=== PATIENT | female | born 1965 | race African-American/Black ===

== ENCOUNTER 2020-11-14 12:30 | Outpatient (CLI) | payer BC | END 2020-11-14 12:31 | disposition home or self-care (01) | LOC: CSHULT 12:30 | PROVIDERS: ATTEND Nurse Practitioner Family | DX: R19.01 Right upper quadrant abdominal swelling, mass and lump (principal) | CPT/HCPCS: 93975 ==

== ENCOUNTER 2021-02-18 07:23 | Outpatient (CLI) | payer BC ==
[2021-02-18 09:00] LABS: Hemoglobin 13.8 g/dL (12.0-15.5); Mean Corpuscular HGB CONC 32.9 g/dL (32.0-36.0); Mean Corpuscular Hemoglobin 29.6 pg (27.0-33.0); Mean Corpuscular Volume 89.9 fl (81.6-98.3); Mean Platelet Volume 10.5 fl (7.4-10.4); Platelet Count 364 10x3/uL (150-450); RBC Distribution Width 13.2 % (11.5-14.5); Red Blood Cell (RBC) Count 4.67 10x6/uL (3.90-5.03); White Blood Cell (WBC) Count 5.4 10x3/uL (3.5-10.5)
[2021-02-18 21:45] LABS: SARS-CoV-2 PCR by NAA Not Detected (NotDetected)
== END 2021-02-18 07:24 | disposition home or self-care (01) ==
LOC: CSHLAB 07:23
PROVIDERS: ATTEND Student in an Organized Health Care Education/Training Program
DX: Z01.818 Encounter for other preprocedural examination (principal); Z20.822 Contact with and (suspected) exposure to COVID-19
CPT/HCPCS: 85027; 93005; 93010; U0003; U0005

== ENCOUNTER 2021-02-21 09:58 | Day surgery (SDC) | payer BC ==
[2021-02-19 15:09] VITALS: BMI 31.0
[2021-02-21] MEDS ORDERED: Gabapentin 300 MG CAP ONE (10:02)
[2021-02-21] MEDS ORDERED: Famotidine/PF 20 mg/2ml Vial ONE (10:03)
[2021-02-21] MEDS ORDERED: Lidocaine 1% MPF 2 ML VIAL ONE (10:03)
[2021-02-21] MEDS ORDERED: CeleCOXIB 100 MG CAP ONE (10:03)
[2021-02-21 10:57] LABS: BHCG - Serum Negative (NEGATIVE); Pregs Control Background? CLEAR/WHITE (CLR/WHITE); Pregs Control Bar Appear? YES (CONTROL BAR)
[2021-02-21 11:01] LABS: Anion Gap 16 mmol/L (10-20); BUN (Urea Nitrogen) 19 mg/dL (9.8-20.1); Calc. Creatinine Clearance 110 mL/min (70-130); Calcium 10.4 mg/dL (7.8-10.44); Carbon Dioxide 26 mmol/L (22-29); Chloride 102 mmol/L (98-107); Glucose 114 mg/dL (70-105); Potassium 3.7 mmol/L (3.5-5.1); Sodium 140 mmol/L (136-145)
[2021-02-21] MEDS ORDERED: EPINEPHrine 1 MG/ML AMP ONE (11:20)
[2021-02-21] MEDS ORDERED: Bupivacaine PF 0.5% 30 ML VIAL ONE (11:20)
[2021-02-21] MEDS ORDERED: Fentanyl 100 MCG/2 ML VIAL ONE (11:44)
[2021-02-21] MEDS ORDERED: PROPOFOL 20 ML ONE (11:44)
[2021-02-21] MEDS ORDERED: Lidocaine 1% PF 5 ML VIAL ONE (11:45)
[2021-02-21] MEDS ORDERED: Rocuronium Bromide 10 MG/ML (10ML VIAL) ONE (11:45)
[2021-02-21] MEDS ORDERED: Dexamethasone 4 mg/ml Vial ONE (13:08)
[2021-02-21] MEDS ORDERED: Ketorolac Tromethamine 30 MG/ML VIAL ONE (13:08)
[2021-02-21] MEDS ORDERED: Ondansetron PF 4 MG/2 ML Vial ONE (13:08)
[2021-02-21] MEDS ORDERED: Glycopyrrolate 0.2 MG/ML 5 ML SYRINGE ONE (13:17)
== END 2021-02-21 14:37 | disposition home or self-care (01) ==
LOC: CSHSDC 09:58
PROVIDERS: ATTEND Student in an Organized Health Care Education/Training Program
PROC: 0UT54ZZ Resection of Right Fallopian Tube, Percutaneous Endoscopic Approach (ICD-10-PCS; principal; 2021-02-21)
PROC: 0UT04ZZ Resection of Right Ovary, Percutaneous Endoscopic Approach (ICD-10-PCS; principal; 2021-02-21)
PROC: 0UB94ZZ Excision of Uterus, Percutaneous Endoscopic Approach (ICD-10-PCS; principal; 2021-02-21)
DX: D27.0 Benign neoplasm of right ovary (principal); D25.1 Intramural leiomyoma of uterus; N80.3 Endometriosis of pelvic peritoneum; N80.8 Other endometriosis; I10 Essential (primary) hypertension; K76.0 Fatty (change of) liver, not elsewhere classified; M19.90 Unspecified osteoarthritis, unspecified site; K21.9 Gastro-esophageal reflux disease without esophagitis; Z87.891 Personal history of nicotine dependence; Z79.899 Other long term (current) drug therapy
CPT/HCPCS: 36415; 80048; 84703; 86850; 86900; 86901; 88305; 88307; J0171; J0690; J1100; J1885; J2405; J2704; J3010; S0020; S0028

== ENCOUNTER 2021-05-06 02:01 | Observation (INO) | payer BC ==
[2021-05-06] MEDS ORDERED: Ondansetron PF 4 MG/2 ML Vial ONE (02:42)
[2021-05-06 03:17] LABS: #Monocytes 0.5 10x3/uL (0.0-1.1); #Neutrophils 7.3 10x3/uL (1.5-8.4); %Basophils 0.3 % (0.0-2.0); %Eosinophils 0.4 % (0.0-6.0); %Lymphocytes 18.5 % (18.0-47.0); %Monocytes 5.3 % (0.0-10.0); %Neutrophils 75.1 % (40.0-75.0); Hemoglobin 14.5 g/dL (12.0-15.5); Mean Corpuscular HGB CONC 35.1 g/dL (32.0-36.0); Mean Corpuscular Hemoglobin 30.1 pg (27.0-33.0); Mean Corpuscular Volume 85.9 fl (81.6-98.3); Mean Platelet Volume 10.8 fl (7.4-10.4); Platelet Count 305 10x3/uL (150-450); RBC Distribution Width 13.2 % (11.5-14.5); Red Blood Cell (RBC) Count 4.81 10x6/uL (3.90-5.03); White Blood Cell (WBC) Count 9.7 10x3/uL (3.5-10.5)
[2021-05-06 03:21] LABS: ALT (SGPT) 26 U/L (8-55); AST (SGOT) 27 U/L (5-34); Albumin 4.7 g/dL (3.5-5.0); Alkaline Phosphatase 80 U/L (40-110); Anion Gap 21 mmol/L (10-20); BUN (Urea Nitrogen) 19 mg/dL (9.8-20.1); Bilirubin, Total 0.6 mg/dL (0.2-1.2); Calc. Creatinine Clearance 0 mL/min (70-130); Calcium 9.9 mg/dL (7.8-10.44); Carbon Dioxide 21 mmol/L (22-29); Chloride 101 mmol/L (98-107); Glucose 118 mg/dL (70-105); Lipase 40 U/L (8-78); Potassium 3.3 mmol/L (3.5-5.1); Protein, Total 7.7 g/dL (6.0-8.3); Sodium 140 mmol/L (136-145)
[2021-05-06] MEDS ORDERED: Morphine 4 MG/ML VIAL ONE (03:38)
[2021-05-06 04:20] LABS: SARS-CoV-2 NAA Rapid Test Not Detected (NotDetected)
[2021-05-06] MEDS ORDERED: Ondansetron ODT 4 MG TAB ONE (05:11)
[2021-05-06] MEDS ORDERED: Acetaminophen 650 MG Suppository PR PRN (08:54)
[2021-05-06] MEDS ORDERED: Ondansetron PF 4 MG/2 ML Vial IVP PRN (08:54)
[2021-05-06] MEDS ORDERED: Potassium Chloride 40 MEQ in Premix Bag 1 BAG IVPB SCH (09:15)
[2021-05-06] MEDS ORDERED: Pantoprazole 40 MG VIAL IVP SCH (09:15)
[2021-05-06 09:16] LABS: Lactic Acid 1.4 mmol/L (0.5-2.2)
[2021-05-06 09:57] VITALS: BMI 32.5
[2021-05-06] MEDS ORDERED: FLU VACC QS2021-22(6MOS UP)/PF 60 MCG/0.5 ML SYRINGE IM ONE (10:15)
[2021-05-06] MEDS: Lactated Ringer's 1,000 ML IV SCH ×3 (10:35→22:03)
[2021-05-06] MEDS ORDERED: Pantoprazole 40 MG VIAL ONE (10:35)
[2021-05-06 13:28] LABS: Bilirubin Neg (Negative); Blood, Urine 10 (Negative); Clarity Clear (Clear); Glucose, Urine (Dipstick) Normal (Negative); Ketone, Urine 15 mg/dL (Negative); Leukocyte Negative (Negative); Nitrite Negative (Negative); Protein, Urine (Dipstick) 15 mg/dl (Neg-Trace); Specific Gravity, Urine 1.015 (1.002-1.036); Urobilinogen Normal mg/dL (Less than 2)
[2021-05-06 13:47] LABS: Bacteria/HPF 2+ HPF (None Seen); Mucous/LPF 2+ LPF (<2+); RBC/HPF 0-3 HPF (0-3); Squamous Epithelial 0-3 HPF (0-3); WBC/HPF 0-3 HPF (0-3)
[2021-05-07] MEDS: Lactated Ringer's 1,000 ML IV SCH (05:52)
[2021-05-07 05:57] LABS: #Eosinphils 0.1 10x3/uL (0.0-0.5); #Monocytes 0.4 10x3/uL (0.0-1.1); #Neutrophils 2.5 10x3/uL (1.5-8.4); %Basophils 0.2 % (0.0-2.0); %Eosinophils 1.9 % (0.0-6.0); %Lymphocytes 35.7 % (18.0-47.0); %Monocytes 9.1 % (0.0-10.0); %Neutrophils 52.7 % (40.0-75.0); Hemoglobin 11.4 g/dL (12.0-15.5); Mean Corpuscular HGB CONC 33.6 g/dL (32.0-36.0); Mean Corpuscular Hemoglobin 30.1 pg (27.0-33.0); Mean Corpuscular Volume 89.4 fl (81.6-98.3); Mean Platelet Volume 11.1 fl (7.4-10.4); Platelet Count 247 10x3/uL (150-450); RBC Distribution Width 13.5 % (11.5-14.5); Red Blood Cell (RBC) Count 3.79 10x6/uL (3.90-5.03); White Blood Cell (WBC) Count 4.7 10x3/uL (3.5-10.5)
[2021-05-07 06:30] LABS: ALT (SGPT) 18 U/L (8-55); AST (SGOT) 15 U/L (5-34); Albumin 3.5 g/dL (3.5-5.0); Alkaline Phosphatase 58 U/L (40-110); Anion Gap 12 mmol/L (10-20); BUN (Urea Nitrogen) 9 mg/dL (9.8-20.1); Bilirubin, Total 0.5 mg/dL (0.2-1.2); Calc. Creatinine Clearance 125 mL/min (70-130); Calcium 8.3 mg/dL (7.8-10.44); Carbon Dioxide 27 mmol/L (22-29); Chloride 106 mmol/L (98-107); Globulin 1.9 g/dL (2.4-3.5); Glucose 105 mg/dL (70-105); Potassium 2.9 mmol/L (3.5-5.1); Protein, Total 5.4 g/dL (6.0-8.3); Sodium 142 mmol/L (136-145)
[2021-05-07] MEDS ORDERED: Lactated Ringer's 1,000 ML IV SCH (07:42)
[2021-05-07] MEDS ORDERED: Potassium Chloride 40 MEQ in Premix Bag 1 BAG IVPB SCH (08:00)
[2021-05-07] MEDS ORDERED: PARoxetine 20 MG TAB PO SCH (09:00)
[2021-05-07] MEDS ORDERED: Chlorthalidone 25 MG TAB PO SCH (09:00)
[2021-05-07] MEDS ORDERED: PARoxetine 10 MG TAB PO SCH (09:00)
[2021-05-07] MEDS ORDERED: Atenolol 50 MG TAB PO SCH (09:00)
[2021-05-07] MEDS ORDERED: Pantoprazole 40 MG VIAL IVP SCH (09:00)
[2021-05-07 18:37] LABS: Anion Gap 13 mmol/L (10-20); BUN (Urea Nitrogen) 10 mg/dL (9.8-20.1); Calc. Creatinine Clearance 118 mL/min (70-130); Calcium 8.9 mg/dL (7.8-10.44); Carbon Dioxide 26 mmol/L (22-29); Chloride 105 mmol/L (98-107); Glucose 128 mg/dL (70-105); Potassium 3.2 mmol/L (3.5-5.1); Sodium 141 mmol/L (136-145)
[2021-05-07 19:43] VITALS: BP 113/68; TEMP 97
[2021-05-07] MEDS ORDERED: Potassium Chloride 20 MEQ TAB PO SCH (20:15)
== END 2021-05-07 21:16 | disposition home or self-care (01) ==
LOC: CSHERS 02:01 → CSHTELE 08:21 → INTOOBSV 08:21
PROVIDERS: ADMIT Internal Medicine; ATTEND Internal Medicine
DX: K52.9 Noninfective gastroenteritis and colitis, unspecified (principal); E86.0 Dehydration; E87.6 Hypokalemia; E87.2 Acidosis; I10 Essential (primary) hypertension; Z79.899 Other long term (current) drug therapy; K21.9 Gastro-esophageal reflux disease without esophagitis; Z20.822 Contact with and (suspected) exposure to COVID-19
CPT/HCPCS: 36556; 74176; 78227; 80053; 81003; 81015; 82010; 83605; 83630; 83690; 84484; 85025; 87045; 87046; 87177; 87324; 87328; 87329; 87427; 87449; 93005; 96372; 96374; 96375; 96376; 99292; A9537; C9113; G0378; J2270; J2405; J3480; J7120; Q0162; U0002